=== PATIENT | male | born 1960 | race Asian ===

== ENCOUNTER 2021-03-14 08:18 | Day surgery (SDC) | payer BC, OTHER ==
[2021-03-13 11:43] VITALS: BMI 28.6
[2021-03-14] MEDS ORDERED: PROPOFOL 20 ML ONE ×2 (09:54)
[2021-03-14 10:42] VITALS: BP 135/91; PULSE 78; TEMP 98.1
== END 2021-03-14 10:55 | disposition home or self-care (01) ==
LOC: FASU-ENDO 08:18
PROVIDERS: ATTEND Internal Medicine Gastroenterology
PROC: 0DBL8ZX Excision of Transverse Colon, Via Natural or Artificial Opening Endoscopic, Diagnostic (ICD-10-PCS; 2021-03-14)
PROC: 0DBN8ZX Excision of Sigmoid Colon, Via Natural or Artificial Opening Endoscopic, Diagnostic (ICD-10-PCS; principal; 2021-03-14 09:56)
DX: Z12.11 Encounter for screening for malignant neoplasm of colon (principal); D12.5 Benign neoplasm of sigmoid colon; D12.3 Benign neoplasm of transverse colon; K57.30 Diverticulosis of large intestine without perforation or abscess without bleeding; K64.0 First degree hemorrhoids
CPT/HCPCS: 88305-TC